=== PATIENT | male | born 1935 | race Caucasian/White ===

== ENCOUNTER 2018-06-05 17:20 | Observation (INO) | payer OTHER ==
[~2018-06-05] VITALS: Ht 190.5 cm; Wt 83.6 kg
[2018-06-05] MEDS ORDERED: ELIQUIS2.5 MG PO (17:40)
[2018-06-05] MEDS ORDERED: Lisinopril2.5 MG PO (17:41)
[2018-06-05] MEDS ORDERED: Micro-K10 MEQ PO (17:41)
[2018-06-05] MEDS ORDERED: FURO40 PO (17:41)
[2018-06-05] MEDS ORDERED: METO25ER PO (17:41)
[2018-06-05 18:56] LABS: Magnesium, Blood 2.3 mg/dL (1.6-2.4); Troponin I 0.272 ng/mL (0.000-0.040)
[2018-06-06 03:03] LABS: Source, Urine Clean Catch
[2018-06-06 03:05] LABS: Hematocrit 43.8 % (37.0-53.0); Hemoglobin 14.4 g/dL (13.5-17.5); Mean Corpuscular HGB 29.5 pg (26.0-34.0); Mean Corpuscular HGB Conc 32.9 g/dL (31.5-36.5); Platelet Count 142 K/mm3 (150-400); RDW Coefficient Variation 14.5 % (11.7-14.2); RDW Standard Deviation 47.3 fL (35.1-46.3); Red Blood Cell Count 4.88 M/mm3 (4.30-5.90); White Blood Cell Count 7.09 K/mm3 (4.00-11.30)
[2018-06-06 03:05] LABS: Bilirubin, Urine Neg (Neg); Blood, Urine Neg (Neg); Glucose Qualitative, Urine Neg (Neg); Ketones, Urine Neg (Neg); Leukocyte Esterase, Urine Neg (Neg); Nitrite, Urine Neg (Neg); Protein, Urine Neg (Neg); Urobilinogen, Urine NORM (Normal)
[2018-06-06 03:25] LABS: Alanine Aminotransfer (ALT/SGP 35 U/L (12-78); Albumin/Globulin Ratio 0.8 (0.8-1.8); Alk Phos 81 U/L (50-136); Anion Gap 9 mmol/L (6-16); Aspartate Aminotrans (AST/SGOT 33 U/L (12-37); Bilirubin, Total 0.8 mg/dL (0.1-1.0); Blood Urea Nitrogen 33 mg/dL (8-24); Bun/Creatinine Ratio 30.6 (12.0-20.0); CO2, Blood 26 mmol/L (21-32); Calcium, Blood 8.7 mg/dL (8.5-10.1); Chloride, Blood 105 mmol/L (98-108); Creatinine, Blood 1.08 mg/dL (0.60-1.20); Globulin, Blood 3.9 g/dL (2.2-4.0); Glomerular Filtration Rate >60 (60-); Glucose, Blood 85 mg/dL (70-99); Potassium, Blood 4.8 mmol/L (3.5-5.5); Sodium, Blood 140 mmol/L (136-145); Total Protein, Blood 6.9 g/dL (6.4-8.2); Troponin I 0.322 ng/mL (0.000-0.040)
[2018-06-06 03:31] LABS: Mean Corpuscular Volume 90 fL (80-100)
[2018-06-06 03:35] LABS: Appearance, Urine Clear (Clear); Color, Urine Yellow (P-Yellow)
[2018-06-06 12:02] LABS: Troponin I 0.193 ng/mL (0.000-0.040)
[2018-06-06 15:37] LABS: International Normalized Ratio 1.71; Prothrombin Time Results 17.1 Sec (9.7-11.5)
[2018-06-06 15:43] LABS: Anion Gap 7 mmol/L (6-16); Blood Urea Nitrogen 29 mg/dL (8-24); Bun/Creatinine Ratio 32.3 (12.0-20.0); CO2, Blood 26 mmol/L (21-32); Calcium, Blood 8.9 mg/dL (8.5-10.1); Chloride, Blood 106 mmol/L (98-108); Glomerular Filtration Rate >60 (60-); Glucose, Blood 117 mg/dL (70-99); Magnesium, Blood 2.1 mg/dL (1.6-2.4); Potassium, Blood 4.5 mmol/L (3.5-5.5); Sodium, Blood 139 mmol/L (136-145)
[2018-06-07 04:16] LABS: BASOPHILS ABSOLUTE AUTO 0.05 K/mm3 (0.00-0.23); BASOPHILS PERCENT AUTO 1 % (0-2); EOSINOPHILS ABSOLUTE AUTO 0.19 K/mm3 (0.00-0.68); EOSINOPHILS PERCENT AUTO 3 % (0-6); Hematocrit 43.7 % (37.0-53.0); Hemoglobin 14.5 g/dL (13.5-17.5); IMMATURE GRAN ABSOLUTE AUTO 0.01 K/mm3 (0.00-0.10); IMMATURE GRAN PERCENT AUTO 0 % (0-1); LYMPHOCYTES ABSOLUTE AUTO 1.92 K/mm3 (0.84-5.20); LYMPHOCYTES PERCENT AUTO 31 % (21-46); MONOCYTES ABSOLUTE AUTO 0.72 K/mm3 (0.16-1.47); MONOCYTES PERCENT AUTO 11 % (4-13); Mean Corpuscular HGB 29.3 pg (26.0-34.0); Mean Corpuscular HGB Conc 33.2 g/dL (31.5-36.5); Mean Corpuscular Volume 88 fL (80-100); Mean Platelet Volume 12.7 fL (9.1-12.4); NEUTROPHILS ABSOLUTE AUTO 3.41 K/mm3 (1.96-9.15); NEUTROPHILS PERCENT AUTO 54 % (41-73); Platelet Count 133 K/mm3 (150-400); RDW Coefficient Variation 14.5 % (11.7-14.2); RDW Standard Deviation 45.9 fL (35.1-46.3); Red Blood Cell Count 4.95 M/mm3 (4.30-5.90)
[2018-06-07 04:38] LABS: Anion Gap 9 mmol/L (6-16); Blood Urea Nitrogen 26 mg/dL (8-24); Bun/Creatinine Ratio 31.1 (12.0-20.0); CO2, Blood 24 mmol/L (21-32); Calcium, Blood 8.6 mg/dL (8.5-10.1); Chloride, Blood 106 mmol/L (98-108); Creatinine, Blood 0.84 mg/dL (0.60-1.20); Glomerular Filtration Rate >60 (60-); Glucose, Blood 89 mg/dL (70-99); Potassium, Blood 4.1 mmol/L (3.5-5.5); Sodium, Blood 139 mmol/L (136-145)
[2018-06-07] MEDS ORDERED: ELIQUIS5 MG PO (13:08)
[2018-06-07] MEDS ORDERED: LOSA25 PO (13:09)
== END 2018-06-07 13:40 | disposition home or self-care (01) ==
LOC: ER 17:20 → PCU 17:21 → ERHOLD 17:21 → PCU 22:30
PROVIDERS: Emergency Medicine; Hospitalist; Internal Medicine; Internal Medicine Cardiovascular Disease
DX: I95.9 Hypotension, unspecified (principal); I48.91 Unspecified atrial fibrillation; R79.89 Other specified abnormal findings of blood chemistry
CPT/HCPCS: 36415; 71045; 80048; 80053; 81003; 82550; 83735; 83880; 84484; 85025; 85027; 85610; 93005; 93010; 96374; 96375; 99285-25; G0378; J1160; J2250; J2310; J3010; J7030

== ENCOUNTER → 2018-06-05 | Outpatient (CLI) | payer OTHER ==
[~2018-06-05] MED LIST: ELIQUIS2.5 MG PO; ELIQUIS5 MG PO; FURO40 PO; LOSA25 PO; Lisinopril2.5 MG PO; METO25ER PO; Micro-K10 MEQ PO
[2018-06-05 16:33] LABS: BASOPHILS ABSOLUTE AUTO 0.04 K/mm3 (0.00-0.23); BASOPHILS PERCENT AUTO 1 % (0-2); EOSINOPHILS ABSOLUTE AUTO 0.08 K/mm3 (0.00-0.68); EOSINOPHILS PERCENT AUTO 1 % (0-6); Hematocrit 43.6 % (37.0-53.0); IMMATURE GRAN ABSOLUTE AUTO 0.01 K/mm3 (0.00-0.10); IMMATURE GRAN PERCENT AUTO 0 % (0-1); LYMPHOCYTES ABSOLUTE AUTO 1.69 K/mm3 (0.84-5.20); LYMPHOCYTES PERCENT AUTO 29 % (21-46); MONOCYTES ABSOLUTE AUTO 0.54 K/mm3 (0.16-1.47); MONOCYTES PERCENT AUTO 9 % (4-13); Mean Corpuscular HGB Conc 34.4 g/dL (31.5-36.5); Mean Corpuscular Volume 87 fL (80-100); Mean Platelet Volume 12.2 fL (9.1-12.4); NEUTROPHILS ABSOLUTE AUTO 3.47 K/mm3 (1.96-9.15); NEUTROPHILS PERCENT AUTO 59 % (41-73); Platelet Count 142 K/mm3 (150-400); RDW Coefficient Variation 14.5 % (11.7-14.2); RDW Standard Deviation 46.1 fL (35.1-46.3); White Blood Cell Count 5.83 K/mm3 (4.00-11.30)
[2018-06-05 16:48] LABS: Bun/Creatinine Ratio 23.7 (12.0-20.0); Calcium, Blood 8.7 mg/dL (8.5-10.1); Creatinine, Blood 1.39 mg/dL (0.60-1.20); Potassium, Blood 4.3 mmol/L (3.5-5.5); Troponin I 0.278 ng/mL (0.000-0.040)
== END | disposition home or self-care (01) ==
LOC: LAB EV 16:29 → LAB SHORT 16:29
PROVIDERS: Family Medicine
DX: I50.22 Chronic systolic (congestive) heart failure (principal)
CPT/HCPCS: 80048; 83880; 84484; 85025

== ENCOUNTER → 2018-06-22 | Outpatient (CLI) | payer OTHER ==
[~2018-06-22] MED LIST changes: +METO50ER PO; +POTCHL10ER PO
[2018-06-22 12:27] LABS: BASOPHILS ABSOLUTE AUTO 0.06 K/mm3 (0.00-0.23); BASOPHILS PERCENT AUTO 1 % (0-2); EOSINOPHILS ABSOLUTE AUTO 0.11 K/mm3 (0.00-0.68); EOSINOPHILS PERCENT AUTO 2 % (0-6); Hematocrit 44.3 % (37.0-53.0); Hemoglobin 14.8 g/dL (13.5-17.5); IMMATURE GRAN ABSOLUTE AUTO 0.02 K/mm3 (0.00-0.10); IMMATURE GRAN PERCENT AUTO 0 % (0-1); LYMPHOCYTES ABSOLUTE AUTO 1.84 K/mm3 (0.84-5.20); LYMPHOCYTES PERCENT AUTO 25 % (21-46); MONOCYTES ABSOLUTE AUTO 0.64 K/mm3 (0.16-1.47); MONOCYTES PERCENT AUTO 9 % (4-13); Mean Corpuscular HGB 29.7 pg (26.0-34.0); Mean Corpuscular HGB Conc 33.4 g/dL (31.5-36.5); Mean Corpuscular Volume 89 fL (80-100); Mean Platelet Volume 12.2 fL (9.1-12.4); NEUTROPHILS ABSOLUTE AUTO 4.85 K/mm3 (1.96-9.15); NEUTROPHILS PERCENT AUTO 64 % (41-73); Platelet Count 170 K/mm3 (150-400); RDW Coefficient Variation 15.2 % (11.7-14.2); RDW Standard Deviation 49.2 fL (35.1-46.3); Red Blood Cell Count 4.98 M/mm3 (4.30-5.90); White Blood Cell Count 7.52 K/mm3 (4.00-11.30)
[2018-06-22 12:40] LABS: Alanine Aminotransfer (ALT/SGP 52 U/L (12-78); Albumin/Globulin Ratio 0.7 (0.8-1.8); Alk Phos 81 U/L (40-126); Anion Gap 10 mmol/L (6-16); Aspartate Aminotrans (AST/SGOT 50 U/L (12-37); Bilirubin, Total 1.1 mg/dL (0.1-1.0); Blood Urea Nitrogen 30 mg/dL (8-24); Bun/Creatinine Ratio 26.1 (12.0-20.0); CO2, Blood 25 mmol/L (21-32); Calcium, Blood 9.1 mg/dL (8.5-10.1); Chloride, Blood 104 mmol/L (98-108); Creatinine, Blood 1.15 mg/dL (0.60-1.20); Globulin, Blood 4.1 g/dL (2.2-4.0); Glomerular Filtration Rate >60 (60-); Glucose, Blood 124 mg/dL (70-99); Potassium, Blood 4.5 mmol/L (3.5-5.5); Sodium, Blood 139 mmol/L (136-145); Total Protein, Blood 7.1 g/dL (6.4-8.2); Troponin I 0.202 ng/mL (0.000-0.040)
== END | disposition home or self-care (01) ==
LOC: LAB SHORT 12:23 → LAB EV 12:23
PROVIDERS: Physician Assistant
DX: I50.9 Heart failure, unspecified (principal)
CPT/HCPCS: 80053; 83880; 84484; 85025

== ENCOUNTER 2019-07-17 07:59 | Day surgery (SDC) | payer OTHER ==
[~2019-07-17] VITALS: Ht 188 cm; Wt 93.3 kg
[~2019-07-17 07:59] MED LIST changes: +ASPI325 PO; +ATOR80 PO; +FURO20 PO; +LOSA50 PO; +SPIR25 PO
--- NOTE | 2019-07-17 11:11 | NUR ---
07/17/19 Jessica Guthrie O2 SATS DOWN TO 91% ON 3L/NC AFTER 3RD DOSE OF PROPOFOL(TOTAL 80MG IV GIVEN AFTER 3RD DOSE). O2 UP TO 5L/NC. DR. VEGA AWARE.
== END 2019-07-17 10:38 | disposition home or self-care (01) ==
LOC: ORSCSDS 07:59
PROVIDERS: Internal Medicine Gastroenterology
PROC: 0DBL8ZX Excision of Transverse Colon, Via Natural or Artificial Opening Endoscopic, Diagnostic (ICD-10-PCS; principal; 2019-07-17 09:30)
DX: Z12.11 Encounter for screening for malignant neoplasm of colon (principal); D12.3 Benign neoplasm of transverse colon; K57.30 Diverticulosis of large intestine without perforation or abscess without bleeding; Z85.038 Personal history of other malignant neoplasm of large intestine; Z87.891 Personal history of nicotine dependence; Z79.82 Long term (current) use of aspirin; Z79.899 Other long term (current) drug therapy; I10 Essential (primary) hypertension; I48.91 Unspecified atrial fibrillation
CPT/HCPCS: 88305; J2704; J7120

== ENCOUNTER 2025-02-22 17:34 | Inpatient (IN) | payer OTHER ==
[~2025-02-22] VITALS: Ht 185.4 cm; Wt 86.4 kg
[2025-02-22] VITALS (8 sets, daily range): BP systolic 86–100; BP diastolic 54–66
[2025-02-22 18:09] LABS: BASOPHILS ABSOLUTE AUTO 0.03 K/mm3 (0.00-0.23); BASOPHILS PERCENT AUTO 1 % (0-2); EOSINOPHILS ABSOLUTE AUTO 0.11 K/mm3 (0.00-0.68); EOSINOPHILS PERCENT AUTO 2 % (0-6); Hematocrit 43.6 % (37.0-53.0); Hemoglobin 14.0 g/dL (13.5-17.5); IMMATURE GRAN ABSOLUTE AUTO 0.01 K/mm3 (0.00-0.10); IMMATURE GRAN PERCENT AUTO 0 % (0-1); LYMPHOCYTES ABSOLUTE AUTO 2.17 K/mm3 (0.84-5.20); LYMPHOCYTES PERCENT AUTO 33 % (21-46); MONOCYTES ABSOLUTE AUTO 0.55 K/mm3 (0.16-1.47); MONOCYTES PERCENT AUTO 8 % (4-13); Mean Corpuscular HGB Conc 32.1 g/dL (31.5-36.5); Mean Corpuscular Volume 96 fL (80-100); NEUTROPHILS ABSOLUTE AUTO 3.71 K/mm3 (1.96-9.15); NEUTROPHILS PERCENT AUTO 56 % (41-73); NRBC ABSOLUTE 0.00 K/mm3 (0.00-0.02); NRBC Auto 0.0 /100 WBC (0.0-0.2); Platelet Count 95 K/mm3 (150-400); RDW Coefficient Variation 16.0 % (11.7-14.2); RDW Standard Deviation 56.9 fL (35.1-46.3)
[2025-02-22] MEDS ORDERED: Metoprolol Tartrate 1 MG/ML 5 ML VIAL IV PRN ×2 (18:10→20:25)
[2025-02-22] MEDS ORDERED: NS 1,000 ML IV SCH (18:15)
[2025-02-22 18:22] LABS: Alanine Aminotransfer (ALT/SGP 64.0 U/L (12-78); Albumin, Blood 2.9 g/dL (3.4-5.0); Albumin/Globulin Ratio 0.7 (0.8-1.8); Anion Gap 6.0 mmol/L (3-11); Aspartate Aminotrans (AST/SGOT 62.0 U/L (12-37); Bilirubin, Total 1.5 mg/dL (0.1-1.0); Blood Urea Nitrogen 37.0 mg/dL (8-24); CO2, Blood 22.0 mmol/L (21-32); Calcium, Blood 8.8 mg/dL (8.5-10.1); Chloride, Blood 109.0 mmol/L (98-108); Creatinine, Blood 1.15 mg/dL (0.60-1.20); Globulin, Blood 4.1 g/dL (2.2-4.0); Glucose, Blood 123.0 mg/dL (70-99); Potassium, Blood 4.7 mmol/L (3.5-5.5); Sodium, Blood 132.0 mmol/L (136-145); Total Protein, Blood 7.0 g/dL (6.4-8.2)
[2025-02-22] MEDS ORDERED: Ondansetron HCl 2 MG / ML 2ML Vial IV PRN (20:20)
[2025-02-22] MEDS ORDERED: Albumin (Human) 25gm/100ml 100 ML IV ONE (22:15)
[2025-02-22] MEDS ORDERED: Furosemide 10 MG / ML 2ML Vial IV ONE (23:00)
[2025-02-22] MEDS ORDERED: ELIQUIS5 M3 PO (23:00)
[2025-02-23] VITALS (51 sets, daily range): BP systolic 79–111; BP diastolic 26–72
[2025-02-23 03:19] LABS: BASOPHILS ABSOLUTE AUTO 0.04 K/mm3 (0.00-0.23); BASOPHILS PERCENT AUTO 1 % (0-2); EOSINOPHILS ABSOLUTE AUTO 0.11 K/mm3 (0.00-0.68); EOSINOPHILS PERCENT AUTO 2 % (0-6); Hematocrit 41.5 % (37.0-53.0); Hemoglobin 13.7 g/dL (13.5-17.5); IMMATURE GRAN ABSOLUTE AUTO 0.02 K/mm3 (0.00-0.10); IMMATURE GRAN PERCENT AUTO 0 % (0-1); LYMPHOCYTES ABSOLUTE AUTO 2.73 K/mm3 (0.84-5.20); LYMPHOCYTES PERCENT AUTO 39 % (21-46); MONOCYTES ABSOLUTE AUTO 0.63 K/mm3 (0.16-1.47); MONOCYTES PERCENT AUTO 9 % (4-13); Mean Corpuscular HGB Conc 33.0 g/dL (31.5-36.5); Mean Corpuscular Volume 92 fL (80-100); NEUTROPHILS ABSOLUTE AUTO 3.47 K/mm3 (1.96-9.15); NEUTROPHILS PERCENT AUTO 50 % (41-73); NRBC ABSOLUTE 0.00 K/mm3 (0.00-0.02); NRBC Auto 0.0 /100 WBC (0.0-0.2); Platelet Count 90 K/mm3 (150-400); RDW Coefficient Variation 16.1 % (11.7-14.2); RDW Standard Deviation 54.6 fL (35.1-46.3)
[2025-02-23 03:36] LABS: Alanine Aminotransfer (ALT/SGP 69.0 U/L (12-78); Albumin, Blood 3.4 g/dL (3.4-5.0); Albumin/Globulin Ratio 0.9 (0.8-1.8); Anion Gap 12.0 mmol/L (3-11); Aspartate Aminotrans (AST/SGOT 75.0 U/L (12-37); Bilirubin, Total 1.7 mg/dL (0.1-1.0); Blood Urea Nitrogen 42.0 mg/dL (8-24); CO2, Blood 22.0 mmol/L (21-32); Calcium, Blood 9.0 mg/dL (8.5-10.1); Chloride, Blood 108.0 mmol/L (98-108); Creatinine, Blood 1.12 mg/dL (0.60-1.20); Globulin, Blood 3.8 g/dL (2.2-4.0); Glucose, Blood 101.0 mg/dL (70-99); Magnesium, Blood 2.2 mg/dL (1.6-2.4); Potassium, Blood 4.8 mmol/L (3.5-5.5); Sodium, Blood 137.0 mmol/L (136-145); Total Protein, Blood 7.2 g/dL (6.4-8.2)
--- NOTE | 2025-02-23 06:08 | NUR ---
SHIFT SUMMARY RECEIVED PT FROM ED LAST NIGHT. PT A/O X4, ANSWERS ALL QUESTIONS APPROP. AFIB CONTINUES, RATE 110'S-120'S. OCCAS C/O SOB, O2 SAT DIPS WHILE SLEEPING. NC 4L INITIATED. PT MORE RELAXED, RESTING COMFORTABLY. WILL UPDATE DAY RN WITH ALL OUTSTANDING ISSUES AND PROBLEMS TO DATE. VSS AT THIS TIME.
[2025-02-23] MEDS ORDERED: Furosemide 10 MG / ML 2ML Vial IV SCH ×2 (09:00→17:00)
--- NOTE | 2025-02-23 13:20 | NUR ---
Dr Jovel notified of low BP, no change in clinical status
--- NOTE | 2025-02-23 18:43 | NUR ---
Patient remained on the ICU today due to planned medictions changes (D/C midodrine and start metop) patient dropped BP with dose of metoprolol. Spoke with Dr Jovel concerning the drop of SBP in the 80's. Clinical picture unchanged. okay with the drop in BP as long as patient remained unsymptomatic. Residential Framing Carpenter consulted, seen patient. Metoprolol D/C'd Digoxin started.
[2025-02-24] VITALS (31 sets, daily range): BP systolic 95–116; BP diastolic 41–71
[2025-02-24 03:50] LABS: Albumin, Blood 2.8 g/dL (3.4-5.0); Anion Gap 12 mmol/L (3-11); Blood Urea Nitrogen 44 mg/dL (8-24); CO2, Blood 23 mmol/L (21-32); Calcium, Blood 8.6 mg/dL (8.5-10.1); Chloride, Blood 106 mmol/L (98-108); Creatinine, Blood 1.33 mg/dL (0.60-1.20); Glucose, Blood 80 mg/dL (70-99); Phosphorus, Blood 3.8 mg/dL (2.5-4.9); Potassium, Blood 4.7 mmol/L (3.5-5.5); Sodium, Blood 136 mmol/L (136-145)
--- NOTE | 2025-02-24 05:10 | NUR ---
SHIFT SUMMARY PATIENT SLEPT OFF AND ON THROUGH NIGHT. 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 PATIENT IS A&O X4. WALKS TO BEDSIDE COMMODE WITH ASSISTS FROM NURSE. PATIENT HAD 125CC OUT OF URINE, NURSE BLADDER SCANNED @ 0230 999+MLS, NURSE STRAIGHT CATHED AND DRAINED OUT 1700MLS OF DARK YELLOW COLOR URINE. SBP 90-100'S AND HR 80-110'S (AFIB). WHEN AWAKE NO O2 NEEDED SATTING 95% AND ABOVE. WHEN PATIENT SLEEPING SATTING IN THE HIGH 80'S, O2 PUT ON VIA NC @4L SATTING IN THE HIGH 90'S. HAD TWO SMALL BM'S WHEN TRYING TO URINATE. HAS LEFT FOREARM PERIPHERAL IV SALINE LOCKED. PATIENT USES CALL LIGHT TO MKE NEEDS KNOWN. CALL LIGHT WITHIN REACH.
--- NOTE | 2025-02-24 09:26 | NUR ---
SHIFT ASSESSMENT ASSUMED CARE OF PT @ 0700, BEDSIDE REPORT RECEIVED FROM [facility] NURSE. PT RESTING COMFORTABLY IN BED, AWAKENS EASILY TO VERBAL STIMULI, A&OX4, CALM AND COOPERATIVE WITH CARE. PT STATES HE FEELS MUCH BETTER TODAY. DENIES CP, COB, OR DIZZINESS. HR 90'S, SBP LOW 100'S. PT TOLERATING PO INTAKE WELL. NO NEW NEEDS OR CONCERNS FROM PT OR FAMILY.
--- NOTE | 2025-02-24 18:19 | NUR ---
SHIFT SUMMARY PT REMAINS A&OX4, FOLLOWING COMMANDS, JARVIS, CALM AND PLEASANT WITH CARE. DENIES CP/ SOB TODAY. WORKED WITH PHYSICAL THERAPY, DOES WELL WALKING WITH SBA FOR CORD MANAGEMENT. HR MOSTLY IN THE 90'S, OCCASIONAL RATE INCREASE TO THE 120'S. TOLERATING PO INTAKE WELL, NO BM. PT UNABLE TO VOID, ATTEMPTED MULTIPLE TIMES. STRAIGHT CATH ATTEMPTED BUT NOT SUCCESSFUL. COUDE ATTEMPT SUCCESSFUL, VINH REMAINS IN FOR I'S & O'S.
[2025-02-25] VITALS (30 sets, daily range): BP systolic 83–117; BP diastolic 39–66
[2025-02-25 03:36] LABS: BASOPHILS ABSOLUTE AUTO 0.02 K/mm3 (0.00-0.23); BASOPHILS PERCENT AUTO 0 % (0-2); EOSINOPHILS ABSOLUTE AUTO 0.10 K/mm3 (0.00-0.68); EOSINOPHILS PERCENT AUTO 2 % (0-6); Hematocrit 37.6 % (37.0-53.0); Hemoglobin 12.7 g/dL (13.5-17.5); IMMATURE GRAN ABSOLUTE AUTO 0.02 K/mm3 (0.00-0.10); IMMATURE GRAN PERCENT AUTO 0 % (0-1); LYMPHOCYTES ABSOLUTE AUTO 1.41 K/mm3 (0.84-5.20); LYMPHOCYTES PERCENT AUTO 24 % (21-46); MONOCYTES ABSOLUTE AUTO 0.54 K/mm3 (0.16-1.47); MONOCYTES PERCENT AUTO 9 % (4-13); Mean Corpuscular HGB Conc 33.8 g/dL (31.5-36.5); Mean Corpuscular Volume 91 fL (80-100); NEUTROPHILS ABSOLUTE AUTO 3.88 K/mm3 (1.96-9.15); NEUTROPHILS PERCENT AUTO 65 % (41-73); NRBC ABSOLUTE 0.00 K/mm3 (0.00-0.02); NRBC Auto 0.0 /100 WBC (0.0-0.2); Platelet Count 72 K/mm3 (150-400); RDW Coefficient Variation 15.4 % (11.7-14.2); RDW Standard Deviation 51.1 fL (35.1-46.3)
[2025-02-25 04:17] LABS: Albumin, Blood 2.7 g/dL (3.4-5.0); Anion Gap 10 mmol/L (3-11); Blood Urea Nitrogen 41 mg/dL (8-24); CO2, Blood 24 mmol/L (21-32); Calcium, Blood 8.7 mg/dL (8.5-10.1); Chloride, Blood 105 mmol/L (98-108); Creatinine, Blood 1.09 mg/dL (0.60-1.20); Glucose, Blood 90 mg/dL (70-99); Magnesium, Blood 1.8 mg/dL (1.6-2.4); Phosphorus, Blood 3.0 mg/dL (2.5-4.9); Potassium, Blood 4.1 mmol/L (3.5-5.5); Sodium, Blood 135 mmol/L (136-145)
[2025-02-25] MEDS ORDERED: Mag Sulfate 1 GM/D5% 100ML 100 ML IV ONE (04:40)
--- NOTE | 2025-02-25 05:27 | NUR ---
SHIFT SUMMARY PATIENT SLEPT THROUGH SHIFT ONLY WAKING FOR VITALS Q4 HOURS. A&O X4, WALKS WITH ASSISTS. HR 80-90'S AND SBP 100-110'S. ON ROOM AIR SATTING IN HIGH 90'S. HAS JUSTICE DRAINING TO GRAVITY. LEFT FOREARM PERIPHERAL IV SALINE LOCKED. PATIENT USES CALL LIGHT TO MAKE NEEDS KNOWN. HEARING AIDS ARE IN THE CHARGING BOX AND PLUGGED IN ON COUNTER. CALL LIGHT WITHIN REACH.
--- NOTE | 2025-02-25 10:26 | NUR ---
ASSUMED CARE OF PT AT 0700 PT SITTING UP IN BED, PROVIDED BREAKFAST MEAL TRAY AND IS EATING INDEPENDENTLY. PT FAMILY IN ROOM. PT IS AOX4 AND COOPERATIVE. PT ON ROOMAIR AND MAINTAINING O2 SATS>95%. LUNGS CLEAR. AFIB RATE OF 90-110S VIA CONTINUOUS MONITOR. BP SOFT W/ MAPS 62-65. SYSTOLICS IN THE 90-100S. PT AFEBRILE. JUSTICE CATH IN PLACE FOR RETENTION. PATENT AND DRAINING TO GRAVITY. DR. OLSON AND DR. HOWARD TO ROOM TO UPDATE POC. CALL LIGHT W/ IN REACH. PLAN OF CARE ONGOING .
--- NOTE | 2025-02-25 12:12 | NUR ---
PROVIDER UPDATE DR. OLSON CALLED REGARDING HYPOTENSION W/ MAPS 59-63. ORDERS TO HOLD TOMORROW AM DOSE OF PO METOPROLOL. PLAN OF CARE ONGOING.
--- NOTE | 2025-02-25 14:07 | NUR ---
TRANSFER SUMMARY PT TAKEN TO PCU ROOM 20 BY THIS RN VIA WC AT 1355. PT FAMILY ACCOMPAINES. REPORT GIVEN TO RIANA SANTIAGO WHO WILL ASSUME CARE.
--- NOTE | 2025-02-25 15:29 | NUR ---
PATIENT TRANSFER TO PCU AT 1400. ABLE TO STAND AND TRANSFER WITH ONE PERSON ASSIST. DENIES PAIN AT THIS TIME. ALERT AND ORIENTED. FAMILY AT BEDSIDE FOR TRANSFER TO PCU. ON ROOM AIR SATING ABOVE 95%. DENIES SOB/COUGH, STATES THIS HAS IMPROVED GREATLY SINCE ADMISSION. EVEN AND UNLABORED RESPIRATIONS. LUNG SOUNDS CLEAR AT THIS TIME. TELE SHOWING AFIB WITH HR 60-90'S. PPP. IV SALINE LOCKED. BLOOD PRESSURE READING 83/47(58) AT TIME OF TRANSFER. 30 MIN LATER BLOOD PRESSURE READING 84/39(54). DR. CENTENO UPDATED ON VITAL SIGNS. ORDERS TO HOLD 1500 IV LASIX AND TO NOTIFY DR. CENTENO WHEN MAPS ARE 55 OR LOWER. SEE NURSE NOTIFY ORDER. MINIMAL EDEMA TO BLE. BOWEL TONES PRESENT THROUGHOUT ALL FOUR QUADRANTS. TOLERATING PO DIET. FLUID RESTRICTION IN PLACE. STRICT INTAKE AND OUTPUT. DENIES ABDOMINAL PAIN/NAUSEA. SKIN C/D/I. ORIENTED TO ROOM/UNIT. CALL LIGHT IN REACH. DENIES NEEDS AT THIS TIME.
--- NOTE | 2025-02-25 17:44 | NUR ---
SHIFT SUMMARY: PATIENT REMAINS ALERT AND ORIENTED. ON ROOM AIR. TELE SHOWING AFIB WITH HR 60-90'S. DENIES CHEST PAIN/PRESSURE/PALPIATIONS. SEE CHARTED VITALS. TOLERATING PO DIET. UP TO BATHROOM, BOWEL MOVEMENT X1. JUSTICE CATH CONTINUES TO DRAIN JEROME COLORED URINE. DENIES NEEDS AT THIS TIME. SITTING UP IN BED READING AT THIS TIME. CALL LIGHT IN REACH.
--- NOTE | 2025-02-25 22:45 | NUR ---
SPOKE TO DR. CENTENO REGARDING BP MAP. NO NEW ORDERS AT THIS TIME AND ADVISED TO CONTINUE WITH PO AMIODARONE. ADVISED TO HOLD ANY BETA BLOCKERS AND LASIX. WILL CONTINUE PLAN OF CARE.
[2025-02-26] VITALS (16 sets, daily range): BP systolic 81–102; BP diastolic 33–57
[2025-02-26] MEDS ORDERED: ENTRESTO 24 MG1 EAC3 (00:19)
[2025-02-26] MEDS ORDERED: ENTRESTO 24 MG1 EACH PO (00:20)
[2025-02-26 04:38] LABS: BASOPHILS ABSOLUTE AUTO 0.02 K/mm3 (0.00-0.23); BASOPHILS PERCENT AUTO 0 % (0-2); EOSINOPHILS ABSOLUTE AUTO 0.11 K/mm3 (0.00-0.68); EOSINOPHILS PERCENT AUTO 2 % (0-6); Hematocrit 37.5 % (37.0-53.0); Hemoglobin 12.6 g/dL (13.5-17.5); IMMATURE GRAN ABSOLUTE AUTO 0.01 K/mm3 (0.00-0.10); IMMATURE GRAN PERCENT AUTO 0 % (0-1); LYMPHOCYTES ABSOLUTE AUTO 1.40 K/mm3 (0.84-5.20); LYMPHOCYTES PERCENT AUTO 27 % (21-46); MONOCYTES ABSOLUTE AUTO 0.52 K/mm3 (0.16-1.47); MONOCYTES PERCENT AUTO 10 % (4-13); Mean Corpuscular HGB Conc 33.6 g/dL (31.5-36.5); Mean Corpuscular Volume 92 fL (80-100); NEUTROPHILS ABSOLUTE AUTO 3.14 K/mm3 (1.96-9.15); NEUTROPHILS PERCENT AUTO 60 % (41-73); NRBC ABSOLUTE 0.00 K/mm3 (0.00-0.02); NRBC Auto 0.0 /100 WBC (0.0-0.2); Platelet Count 73 K/mm3 (150-400); RDW Coefficient Variation 15.2 % (11.7-14.2); RDW Standard Deviation 51.5 fL (35.1-46.3)
[2025-02-26 04:56] LABS: Albumin, Blood 2.6 g/dL (3.4-5.0); Anion Gap 7 mmol/L (3-11); Blood Urea Nitrogen 41 mg/dL (8-24); CO2, Blood 28 mmol/L (21-32); Calcium, Blood 8.7 mg/dL (8.5-10.1); Chloride, Blood 104 mmol/L (98-108); Creatinine, Blood 1.02 mg/dL (0.60-1.20); Glucose, Blood 94 mg/dL (70-99); Magnesium, Blood 1.9 mg/dL (1.6-2.4); Phosphorus, Blood 3.2 mg/dL (2.5-4.9); Potassium, Blood 4.0 mmol/L (3.5-5.5); Sodium, Blood 135 mmol/L (136-145)
--- NOTE | 2025-02-26 08:13 | NUR ---
SHIFT SUMMARY: PT A&OX4 CALM AND COOPERTIVE. [place] ORE[place]ES. SOFT BPS AT START OF SHIFT. PT REPORTED MILD SOB. PROVIDER NOTIFIED. SEE PREVIOUS NOTE. MAP GOAL >55 MAINTAINED FOR REST OF SHIFT. PT DESAT TO 80S WHILE SLEEPING. APPLIED 1L NC AND PT MAINTAINED >92% SPO2. PT HAD 5 BEAT RUN OF VTACH. PT REPORTS ASYMPTOMATIC. JUSTICE IN PLACE FOR RETENTION. DRAINING TEA COLORED URINE TO GRAVITY. FLUID RESTRICTION OF 500 ML FOLLOWED. 1 PERSON ASSIST WITH FWW TO BSC. DAILY WEIGHT COMPLETED. BED IS LOW AND LOCKED. CALL LIGHT WITHIN REACH. WILL CONTINUE PLAN OF CARE TILL REPORT GIVEN TO DAY NURSE
[2025-02-26] MEDS ORDERED: Furosemide 10 MG / ML 2ML Vial IV ONE (16:35)
--- NOTE | 2025-02-26 18:29 | NUR ---
End of Shift Pt A&O x4. BP soft. MD Andrea w/ new orders for 5mg PO midodrine TID & holding scheduled IV lasix & PO metoprolol this AM. MD hagan w/ order for one time 20mg IV lasix this afternoon. Pt BP tolerating IV lasix w/ PO midodrine. VSS. Monitor showing afib, HR 70s-90s. Spo2 > 92% on RA. Magana cath patent & draining tea colored urine.
[2025-02-27] VITALS (8 sets, daily range): BP systolic 88–105; BP diastolic 36–78
[2025-02-27 04:34] LABS: BASOPHILS ABSOLUTE AUTO 0.01 K/mm3 (0.00-0.23); BASOPHILS PERCENT AUTO 0 % (0-2); EOSINOPHILS ABSOLUTE AUTO 0.15 K/mm3 (0.00-0.68); EOSINOPHILS PERCENT AUTO 3 % (0-6); Hematocrit 38.1 % (37.0-53.0); Hemoglobin 13.1 g/dL (13.5-17.5); IMMATURE GRAN ABSOLUTE AUTO 0.01 K/mm3 (0.00-0.10); IMMATURE GRAN PERCENT AUTO 0 % (0-1); LYMPHOCYTES ABSOLUTE AUTO 1.78 K/mm3 (0.84-5.20); LYMPHOCYTES PERCENT AUTO 30 % (21-46); MONOCYTES ABSOLUTE AUTO 0.63 K/mm3 (0.16-1.47); MONOCYTES PERCENT AUTO 11 % (4-13); Mean Corpuscular HGB Conc 34.4 g/dL (31.5-36.5); Mean Corpuscular Volume 91 fL (80-100); NEUTROPHILS ABSOLUTE AUTO 3.36 K/mm3 (1.96-9.15); NEUTROPHILS PERCENT AUTO 57 % (41-73); NRBC ABSOLUTE 0.00 K/mm3 (0.00-0.02); NRBC Auto 0.0 /100 WBC (0.0-0.2); Platelet Count 79 K/mm3 (150-400); RDW Coefficient Variation 15.5 % (11.7-14.2); RDW Standard Deviation 51.0 fL (35.1-46.3)
[2025-02-27 04:49] LABS: Alanine Aminotransfer (ALT/SGP 68.0 U/L (12-78); Albumin, Blood 2.5 g/dL (3.4-5.0); Albumin/Globulin Ratio 0.7 (0.8-1.8); Anion Gap 8.0 mmol/L (3-11); Aspartate Aminotrans (AST/SGOT 62.0 U/L (12-37); Bilirubin, Total 1.2 mg/dL (0.1-1.0); Blood Urea Nitrogen 47.0 mg/dL (8-24); CO2, Blood 26.0 mmol/L (21-32); Calcium, Blood 8.2 mg/dL (8.5-10.1); Chloride, Blood 103.0 mmol/L (98-108); Creatinine, Blood 1.03 mg/dL (0.60-1.20); Globulin, Blood 3.5 g/dL (2.2-4.0); Glucose, Blood 89.0 mg/dL (70-99); Magnesium, Blood 1.7 mg/dL (1.6-2.4); Potassium, Blood 4.3 mmol/L (3.5-5.5); Sodium, Blood 133.0 mmol/L (136-145); Total Protein, Blood 6.0 g/dL (6.4-8.2)
[2025-02-27] MEDS ORDERED: Mag Sulfate 1 GM/D5% 100ML 100 ML IV STA (06:07)
--- NOTE | 2025-02-27 06:30 | NUR ---
SHIFT SUMMARY: PT A&OX4 CALM AND COOPERTIVE. [employer]. MAP GOAL >55 MAINTAINED DURING SHIFT. AFIB 70S-90S. BEGAN TO DESAT TO 80S WHILE SLEEPING. APPLIED 1L NC AND PT MAINTAINED >92% SPO2. NA:133, MG 1.7, CA: 8.2. MG GOAL >[address] CENTENO NOTE. REPORTED TO RESIDENT. MG BEING REPLACED. JUSTICE IN PLACE FOR RETENTION. DRAINING TO GRAVITY. JUSTICE CARE COMPLETED DURING SHIFT. FLUID RESTRICTION OF 500 ML FOLLOWED. DAILY WEIGHT COMPLETED. NO OTHER SIGNIFICANT EVENTS DURING SHIFT. BED IS LOW AND LOCKED. CALL LIGHT WITHIN REACH. WILL CONTINUE PLAN OF CARE TILL REPORT GIVEN TO DAY NURSE.
[2025-02-27] MEDS ORDERED: Torsemide 20 MG TAB PO SCH (09:00)
[2025-02-27] MEDS ORDERED: TORSE20 PO (14:44)
[2025-02-27] MEDS ORDERED: Amiodarone HCl200 MG PO (14:47)
--- NOTE | 2025-02-27 16:02 | NUR ---
Discharge Home Pt A&O x4. BP soft, otherwise VSS. Erecting Engineer aware of BP & okay w/ pt discharge home. Monitor showing AFIB, HR 70s-90s. Spo2 > 92% on RA. Ashraf cath dc'd this AM per MD order. Pt w/ post void. Post void bladder scan done. Findings reported to . w/ jahaira for ashraf to remain out for pt discharge. Discharge instructions reviewed w/ pt & sent home w/ pt. PIV removed. Pt taken out in wheelchair w/ belongings & family @ approx 1530.
== END 2025-02-27 15:30 | disposition home health service (06) | DRG 291 ==
LOC: ER 17:34 → PCU 20:14 → ICUE 20:14 → PCU 02-25 14:15
PROVIDERS: Family Medicine; Internal Medicine Endocrinology, Diabetes & Metabolism; Student in an Organized Health Care Education/Training Program; ADMIT Student in an Organized Health Care Education/Training Program
PROC: 0T9B70Z Drainage of Bladder with Drainage Device, Via Natural or Artificial Opening (ICD-10-PCS; principal; 2025-02-26)
DX: I11.0 Hypertensive heart disease with heart failure (principal); I50.23 Acute on chronic systolic (congestive) heart failure; J96.01 Acute respiratory failure with hypoxia; I48.19 Other persistent atrial fibrillation; T82.897A Other specified complication of cardiac prosthetic devices, implants and grafts, initial encounter; E44.0 Moderate protein-calorie malnutrition; I42.9 Cardiomyopathy, unspecified; Y71.2 Prosthetic and other implants, materials and accessory cardiovascular devices associated with adverse incidents; Z66 Do not resuscitate; I25.10 Atherosclerotic heart disease of native coronary artery without angina pectoris; E78.5 Hyperlipidemia, unspecified; J44.9 Chronic obstructive pulmonary disease, unspecified; R33.9 Retention of urine, unspecified; Z88.8 Allergy status to other drugs, medicaments and biological substances; Z95.2 Presence of prosthetic heart valve; Z68.25 Body mass index [BMI] 25.0-25.9, adult; I25.2 Old myocardial infarction; Z85.038 Personal history of other malignant neoplasm of large intestine; Z79.82 Long term (current) use of aspirin; Z90.49 Acquired absence of other specified parts of digestive tract; Z87.891 Personal history of nicotine dependence
CPT/HCPCS: 36415; 51701; 51703; 71046; 80053; 80069; 83690; 83735; 83880; 84443; 84484; 85025; 93005; 93010; 93308; 93321; 94762; 96361; 96374; 97110; 97116; 97162; 97165; 97530; 97535; 99285-25; A9270; J0282; J1160; J1938; J3475; J7030; P9047